=== PATIENT | female | born 1980 ===

== ENCOUNTER 2023-08-15 10:52 | Outpatient (AMB) | payer OTHER, SELFPAY ==
[2023-08-15 11:08] VITALS: BP 120/72; PULSE 82; TEMP 36.6; O2SAT 98; BMI 31.9
--- NOTE | 2023-08-15 11:08 | AM.OFFWIN_ITS ---
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 She denies chest pain or shortness of breath. She does have asthma but baseline with acute exacerbations typically 1 time per year only. She has been using OTC allergy medications, albuterol inhaler as needed and also tried her child's nebulizer this morning with some relief. She denies measured fever but did feel somewhat warm last day or 2. [facility] Social History Patient Tobacco Use Status: Never used Tobacco Review of Systems Const Reports as per HPI and Reports no additional complaints ENT Reports no additional complaints and Reports as per HPI Card Reports as per HPI and Reports no additional complaints Resp Reports as per HPI and Reports no additional complaints Neuro Reports no additional complaints and Reports as per HPI Physical Exam Vital Signs: Last Vital Signs Temp 97.8 F 08/15/23 11:08 Pulse 82 08/15/23 11:08 BP 120/72 08/15/23 11:08 Pulse Ox 98 08/15/23 11:08 BMI result Body Mass Index 31.9 Const General: cooperative, comfortable and no acute distress Orientation/consciousness: patient oriented x3 HEENT Ears: TM's normal bilaterally General nose exam: Normal nasal mucous membranes and turbinates present Face and sinus: Yes sinuses nontender Mouth: Normal oral and palatal mucosa present Resp Effort & Inspection: normal respiratory effort, able to speak in complete sentences and Actively coughing Quality: wet Auscultation: rhonchi right upper and right lower and wheezes lower bilaterally (Left greater than right) Cardio Rate: regular rate Rhythm: regular rhythm Heart sounds: S1 normal heart sound present and S2 normal heart sound present Neuro General: patient oriented x3 Assessment & Plan Assessment & Plan (1) Asthma with acute exacerbation in adult: Code(s): J45.901 - Unspecified asthma with (acute) exacerbation Qualifiers: Asthma severity: mild Asthma persistence: intermittent Qualified Code(s): J45.21 - Mild intermittent asthma with (acute) exacerbation Plan: Will treat with a 8 day taper prednisone I have refilled her rescue inhaler. If symptoms worsen or she develops fever should start Z-Steve. Return to clinic or follow-up with PCP if symptoms persist. (2) COVID-19 with pulmonary comorbidity: Code(s): U07.1 - COVID-19; J98.4 - Other disorders of lung Plan: If symptoms persist follow-up with PCP may consider pulmonology referral for post COVID symptoms if not improving after treatment. Medications: New azithromycin (Zithromax Z-Steve) 2 pills day one then 1 pill per day x 4 days 250 mg PO DAILY 5 days 6 tabs 0RF albuterol sulfate 90 mcg/actuation (ProAir HFA) 1 inh inhalation Q4-6H PRN 6.7 grams 0RF shortness of breath or wheezing prednisone 2 tabs daily x 4 days, then 1 tab daily days 5-8 20 mg PO DAILY 8 days 12 tabs 0RF Coding Level of Care Code Est Pt Level 3 (88408) Diagnoses Mild intermittent asthma with acute exacerbation in adult J45.21 Asthma severity: mild Asthma persistence: intermittent COVID-19 with pulmonary comorbidity U07.1; J98.4
== END 2023-08-15 11:32 | disposition home or self-care (01) ==
PROVIDERS: PCP Optometrist; Visit Provider Physician Assistant
DX: J45.21 Mild intermittent asthma with (acute) exacerbation (principal); U07.1 COVID-19; J98.4 Other disorders of lung
CPT/HCPCS: 99213